=== PATIENT | female | born 1990 | race Two or more races ===

== ENCOUNTER 2017-01-05 18:13 | Emergency (ER) | payer SELFPAY ==
[~2017-01-05] VITALS: Ht 157.5 cm; Wt 65.8 kg
[2017-01-05 19:10] VITALS: BP 144/108
[2017-01-05 19:12] VITALS: BP 144/108
--- NOTE | 2017-01-05 19:14 | Emergency Room Report ---
History of Present Illness General Chief Complaint: Abdominal Pain Source: Patient Present Illness HPI The patient is a 26 yo F presenting for abd pain. She was called multiple times and ER was searched thoroughly. It appears she has left without being seen Allergies: Coded Allergies: No Known Allergies (Unverified , 01/05/17) Patient History Last Menstrual Period: 12/18/2016 Nursing Documentation-[facility] Past Medical History: No Stated History Physical Exam Vital Signs Date Time Temp Pulse Resp B/P (MAP) Pulse Ox O2 Delivery O2 Flow Rate FiO2 01/05/17 18:26 98.4 122 16 144/108 97 Room Air Medical Decision Making PA Attestation Dr. Cross is my supervising physician. Patient management was discussed with my supervising physician ER Course The patient is a 26 yo F presenting for abd pain. She was called multiple times and ER was searched thoroughly. It appears she has left without being seen Last Vital Signs Date Time Temp Pulse Resp B/P (MAP) Pulse Ox O2 Delivery O2 Flow Rate FiO2 01/05/17 19:10 98.4 16 144/108 97 Room Air 01/05/17 18:26 122 Disposition: LEFT W/OUT BEING SEEN Condition: Unknown Scripts No Active Prescriptions or Reported Meds SAADIA RIVERA Jan 05, 2017 19:14
== END 2017-01-05 19:12 | disposition left against medical advice (07) ==
LOC: EMR 18:33
DX: R10.9 Unspecified abdominal pain (principal); Z53.21 Procedure and treatment not carried out due to patient leaving prior to being seen by health care provider
CPT/HCPCS: 99282

== ENCOUNTER 2019-11-16 15:40 | Emergency (ER) | payer MEDICAID ==
[~2019-11-16] VITALS: Ht 165.1 cm; Wt 81.6 kg
--- NOTE | 2019-11-16 16:08 | NUR ---
ED Nurse Note: Pt BIBA for ETOH abuse after son left home. Pt is alert and orientedx3, drowsy, rambling, repeating words, slurred. IV line established.
[2019-11-16 16:11] VITALS: BP 127/78
[2019-11-16 16:18] LABS: BASOPHILS % (AUTO) 1.2 % (0.0-2.0); EOSINOPHILS % (AUTO) 0.9 % (0.0-3.0); HEMATOCRIT 43.8 % (37.0-47.0); HEMOGLOBIN 14.7 G/DL (12.0-16.0); LYMPHOCYTES % (AUTO) 29.9 % (20.0-45.0); MEAN CORPUSCULAR VOLUME 90 FL (80-99); MONOCYTES % (AUTO) 6.4 % (1.0-10.0); NEUTROPHILS % (AUTO) 61.6 % (45.0-75.0); PLATELET COUNT 433 K/UL (150-450); RED BLOOD COUNT 4.86 M/UL (4.20-5.40); RED CELL DISTRIBUTION WIDTH 13.3 % (11.6-14.8); WHITE BLOOD COUNT 6.8 K/UL (4.8-10.8)
[2019-11-16 16:30] LABS: ANION GAP 13 mmol/L (5-15); BLOOD UREA NITROGEN 9 mg/dL (7-18); CALCIUM 9.3 MG/DL (8.5-10.1); CARBON DIOXIDE 21 MMOL/L (21-32); CHLORIDE 107 MMOL/L (98-107); CREATININE 0.5 MG/DL (0.55-1.30); SODIUM 141 MMOL/L (136-145)
[2019-11-16 16:34] LABS: ALANINE AMINOTRANSFERASE 44 U/L (12-78); ALKALINE PHOSPHATASE 64 U/L (46-116); ASPARTATE AMINO TRANSFERASE 16 U/L (15-37); BILIRUBIN,TOTAL 0.3 MG/DL (0.2-1.0)
[2019-11-16 16:50] LABS: BILIRUBIN, URINE NEGATIVE (NEGATIVE); COLOR,URINE PALE YELLOW; GLUCOSE, URINE (UA) NEGATIVE (NEGATIVE); KETONES,URINE NEGATIVE (NEGATIVE); LEUKOCYTE ESTERASE ,URINE NEGATIVE (NEGATIVE); NITRITE,URINE NEGATIVE (NEGATIVE); PH,URINE 6 (4.5-8.0); PROTEIN,URINE NEGATIVE (NEGATIVE); UROBILINOGEN,URINE NORMAL MG/DL (0.0-1.0)
[2019-11-16 16:53] LABS: APPEARANCE,URINE CLEAR
--- NOTE | 2019-11-16 17:12 | NUR ---
when patient is ready to go home call patients mother slade [phone]
--- NOTE | 2019-11-16 17:22 | Emergency Room Report ---
History of Present Illness General Chief Complaint: Alcohol Intoxication Source: EMS Present Illness HPI 29-year-old female with no known significant past medical history brought in by paramedics due to alcohol intoxication. Patient was sitting at home and very anxious yesterday drinking a lot of alcohol based on report given by patient's mother to the paramedics. Patient stumbling her way into the ED, denies any drug use, tobacco smoke. Complains of nausea and vomiting. Reports that she has not taken any medication for her to poor historian. Patient is in no distress. Denies . 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 Patient History Past Medical History: see triage record Past Surgical History: unable to obtain Pertinent Family History: unable to obtain Social History: Reports: alcohol use Now: No Reviewed Nursing Documentation: PMH: Agreed; PSxH: Agreed Nursing Documentation-PMH Past Medical History: No History, Except For Review of Systems All Other Systems: negative except mentioned in HPI Physical Exam Vital Signs Date Time Temp Pulse Resp B/P (MAP) Pulse Ox O2 Delivery O2 Flow Rate FiO2 11/16/19 15:33 98.4 118 17 140/79 (99) 98 Room Air 11/16/19 16:11 99 Sp02 EP Interpretation: reviewed, normal General Appearance: alert, mild distress Head: normocephalic, atraumatic Eyes: bilateral eye normal inspection, bilateral eye PERRL ENT: hearing grossly normal, normal pharynx, no angioedema, normal voice Neck: full range of motion, supple/symm/no masses Respiratory: chest non-tender, lungs clear, no rhonchi Cardiovascular #1: regular rate, rhythm, no edema Gastrointestinal: non tender, soft Genitourinary: no CVA tenderness Musculoskeletal: back normal Neurologic: alert, motor strength/tone normal, oriented x3, sensory intact, responsive, speech normal Psychiatric: no suicidal/homicidal ideation, other - intoxicated Skin: no rash Lymphatic: no adenopathy Medical Decision Making PA Attestation All my diagnosis and treatment plans were reviewed ad discussed with my supervising physician Dr. Crow Diagnostic Impression: Primary Impression: Acute alcoholic intoxication ER Course 29-year-old female with no known significant past medical history brought in by paramedics due to alcohol intoxication. Patient was sitting at home and very anxious yesterday drinking a lot of alcohol based on report given by patient's mother to the paramedics. Patient stumbling her way into the ED, denies any drug use, tobacco smoke. Complains of nausea and vomiting. Reports that she has not taken any medication for her to poor historian. Patient is in no distress. Denies . Denies headache, dizziness, no signs of encephalopathy noted, denies any tremors Ddx considered but are not limited to: Alcohol intoxication with altered level of consciousness, alcohol intoxication causing pancreatitis, alcohol abuse, multi drug use and alcohol intoxication Vital signs: are WNL, pt. is afebrile H&PE are most consistent with: acute alcohol intoxication ORDERS: CBC, CMP, UDS, EtOH level, urine test, UA, ER intervention: NS bolus, Zofran, Pepcid DISCHARGE: At this time pt. is stable for d/c to home. Will provide printed patient care instructions, and any necessary prescriptions. Care plan and follow up instructions have been discussed with the patient prior to discharge. Patient able to speak full sentences, remember, anxious, called mom to come pick her up. Patient is walking without any problems. Stable at time of discharge Last Vital Signs Date Time Temp Pulse Resp B/P (MAP) Pulse Ox O2 Delivery O2 Flow Rate FiO2 11/16/19 16:11 98.4 98 19 127/78 99 Room Air 11/16/19 16:11 99 Disposition: HOME, SELF-CARE Condition: Stable Scripts No Active Prescriptions or Reported Meds Referrals: [facility],REFERRING (PCP) Patient Instructions: Alcohol Abuse and Nutrition Molly Munoz Nov 16, 2019 17:22
[2019-11-16 18:24] VITALS: BP 126/75
--- NOTE | 2019-11-16 20:01 | NUR ---
EMERGENCY CONTACT: [phone]: Valencia (mother)
[2019-11-16 20:06] VITALS: BP 120/69
--- NOTE | 2019-11-16 20:06 | NUR ---
ED Nurse Note: Pt cleared by ERPA for discharge. DC instructions was given and explained to pt and verbalized understanding of teachings. All medical deviecs such as ID band and IV line removed. Pt is AAO x4, ambulatory and left with all personal belongings. P/u by mother.
== END 2019-11-16 20:06 | disposition home or self-care (01) ==
LOC: EDBD 15:40 → EMR 16:07
DX: F10.129 Alcohol abuse with intoxication, unspecified (principal)
CPT/HCPCS: 36415; 80053; 80307; 81003; 81025; 83690; 85025; 96361; 96374; 96375; G0480; J2405; J7030; S0028; Z7502; 99284

== ENCOUNTER 2020-03-28 14:13 | Emergency (ER) | payer MEDICAID ==
[~2020-03-28] VITALS: Ht 154.9 cm; Wt 65.8 kg
--- NOTE | 2020-03-28 14:34 | NUR ---
ED Nurse Note:pt. came from home with lower abdominal cramping, no vaginal bleeding reported, no fever, pt. was examed by ER MD, she is 22 weeks
--- NOTE | 2020-03-28 14:37 | Emergency Room Report ---
History of Present Illness General Chief Complaint: Complications Source: Patient Present Illness HPI Patient is a 29-year-old female presents for increased abdominal cramping no vaginal bleeding. Reports having rash to her upper abdomen as well as increased abdominal discomfort. Denies any leakage of fluid or change in movement. at 22 weeks. Had not seen OB to this point. 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 COVID-19 Screening: Positive COVID-19 COVID-19 Testing Source: jan 2020 Patient History Past Medical History: see triage record Last Menstrual Period: 10/2019 Now: Yes : 2 Para: 1 Reviewed Nursing Documentation: PMH: Agreed; PSxH: Agreed Nursing Documentation-PMH Past Medical History: No History, Except For Review of Systems All Other Systems: negative except mentioned in HPI Physical Exam Vital Signs Date Time Temp Pulse Resp B/P (MAP) Pulse Ox O2 Delivery O2 Flow Rate FiO2 03/28/20 14:18 97.9 82 20 114/76 (89) 98 Room Air Sp02 EP Interpretation: reviewed, normal General Appearance: normal inspection, well appearing, no apparent distress, alert, GCS 15 Head: atraumatic ENT: normal ENT inspection, hearing grossly normal, normal voice Neck: normal inspection, full range of motion, supple, no bony tend Respiratory: normal inspection, lungs clear, normal breath sounds, no respiratory distress, no retraction, no wheezing Cardiovascular #1: regular rate, rhythm, no edema Gastrointestinal: normal inspection, normal bowel sounds, non tender, soft, no guarding, no hernia Genitourinary: no CVA tenderness Musculoskeletal: normal inspection, back normal, normal range of motion Neurologic: alert, motor strength/tone normal, medicare sales representative III-XII nml as tested, oriented x3, responsive, speech normal, normal inspection Psychiatric: normal inspection, judgement/insight normal, mood/affect normal Skin: other - Patchy rash to the right upper abdomen consistent with recent shingles Medical Decision Making Diagnostic Impression: Primary Impression: Complication of ER Course Patient presented for abdominal pain. Differential diagnosis include was not limited to premature labor, constipation, among others. Patient was noted to have advanced age of and cannot be managed at this facility. Patient does not currently in active labor. Bedside ultrasound showed adequate heartbeat with heart rate approximately 150s.Patient will be given IV fluids as well as Tylenol for pain. Formal ultrasound showed intrauterine with heart rate of 140s. Patient will be transferred to [facility] for labor and delivery for higher level of care. Patient was discussed with [facility] who agreed to accept the patient. Labs Test 03/28/20 14:25 03/28/20 14:45 Urine Color Pale yellow Urine Appearance Clear Urine pH 6.5 (4.5-8.0) Urine Specific [place] 1.020 (1.005-1.035) Urine Protein Negative (NEGATIVE) Urine Glucose (UA) Negative (NEGATIVE) Urine Ketones Negative (NEGATIVE) Urine Blood Negative (NEGATIVE) Urine Nitrite Negative (NEGATIVE) Urine Bilirubin Negative (NEGATIVE) Urine Urobilinogen Normal MG/DL (0.0-1.0) Urine Leukocyte Esterase 1+ (NEGATIVE) Urine RBC 0-2 /HPF (0 - 2) Urine WBC 0-2 /HPF (0 - 2) Urine Squamous Epithelial Cells Few /LPF (NONE/OCC) Urine Bacteria Few /HPF (NONE) White Blood Count 6.8 K/UL (4.8-10.8) Red Blood Count 3.82 M/UL (4.20-5.40) Hemoglobin 11.7 G/DL (12.0-16.0) Hematocrit 35.0 % (37.0-47.0) Mean Corpuscular Volume 92 FL (80-99) Mean Corpuscular Hemoglobin 30.8 PG (27.0-31.0) Mean Corpuscular Hemoglobin Concent 33.5 G/DL (32.0-36.0) Red Cell Distribution Width 13.4 % (11.6-14.8) Platelet Count 400 K/UL (150-450) Mean Platelet Volume 5.6 FL (6.5-10.1) Neutrophils (%) (Auto) 66.9 % (45.0-75.0) Lymphocytes (%) (Auto) 25.2 % (20.0-45.0) Monocytes (%) (Auto) 6.5 % (1.0-10.0) Eosinophils (%) (Auto) 1.1 % (0.0-3.0) Basophils (%) (Auto) 0.2 % (0.0-2.0) Sodium Level 136 MMOL/L (136-145) Potassium Level 4.0 MMOL/L (3.5-5.1) Chloride Level 105 MMOL/L (98-107) Carbon Dioxide Level 23 MMOL/L (21-32) Anion Gap 8 mmol/L (5-15) Blood Urea Nitrogen 14 mg/dL (7-18) Creatinine 0.5 MG/DL (0.55-1.30) Estimat Glomerular Filtration Rate > 60 mL/min (>60) Glucose Level 92 MG/DL (74-106) Calcium Level 9.0 MG/DL (8.5-10.1) Total Bilirubin 0.1 MG/DL (0.2-1.0) Aspartate Amino Transf (AST/SGOT) < 5 U/L (15-37) Alanine Aminotransferase (ALT/SGPT) 8 U/L (12-78) Alkaline Phosphatase 58 U/L (46-116) Total Protein 6.6 G/DL (6.4-8.2) Albumin 2.7 G/DL (3.4-5.0) Globulin 3.9 g/dL Albumin/Globulin Ratio 0.7 (1.0-2.7) Lipase 376 U/L (73-393) Human Chorionic Gonadotropin, Quant 7379 mIU/mL (1-6) Last Vital Signs Date Time Temp Pulse Resp B/P (MAP) Pulse Ox O2 Delivery O2 Flow Rate FiO2 03/28/20 14:18 97.9 82 20 114/76 (89) 98 Room Air Status: unchanged Disposition: SHORT-TERM HOSP Condition: Stable Scripts No Active Prescriptions or Reported Meds Shaun Crow MD Mar 28, 2020 14:37
--- NOTE | 2020-03-28 14:48 | NUR ---
ED Nurse Note:blood and urine sent to labs, abdominal U/S being done
[2020-03-28 14:56] LABS: APPEARANCE,URINE CLEAR; BILIRUBIN, URINE NEGATIVE (NEGATIVE); COLOR,URINE PALE YELLOW; GLUCOSE, URINE (UA) NEGATIVE (NEGATIVE); KETONES,URINE NEGATIVE (NEGATIVE); LEUKOCYTE ESTERASE ,URINE 1+ (NEGATIVE); NITRITE,URINE NEGATIVE (NEGATIVE); PH,URINE 6.5 (4.5-8.0); PROTEIN,URINE NEGATIVE (NEGATIVE); UROBILINOGEN,URINE NORMAL MG/DL (0.0-1.0)
[2020-03-28 15:06] LABS: ANION GAP 8 mmol/L (5-15); BLOOD UREA NITROGEN 14 mg/dL (7-18); CARBON DIOXIDE 23 MMOL/L (21-32); CHLORIDE 105 MMOL/L (98-107); CREATININE 0.5 MG/DL (0.55-1.30); SODIUM 136 MMOL/L (136-145)
[2020-03-28 15:10] LABS: ALANINE AMINOTRANSFERASE 8 U/L (12-78); ALBUMIN 2.7 G/DL (3.4-5.0); ALBUMIN/GLOBULIN RATIO 0.7 (1.0-2.7); ALKALINE PHOSPHATASE 58 U/L (46-116); ASPARTATE AMINO TRANSFERASE < 5 U/L (15-37); BASOPHILS % (AUTO) 0.2 % (0.0-2.0); BILIRUBIN,TOTAL 0.1 MG/DL (0.2-1.0); EOSINOPHILS % (AUTO) 1.1 % (0.0-3.0); HEMOGLOBIN 11.7 G/DL (12.0-16.0); LYMPHOCYTES % (AUTO) 25.2 % (20.0-45.0); MEAN CORPUSCULAR VOLUME 92 FL (80-99); MONOCYTES % (AUTO) 6.5 % (1.0-10.0); NEUTROPHILS % (AUTO) 66.9 % (45.0-75.0); PLATELET COUNT 400 K/UL (150-450); RED BLOOD COUNT 3.82 M/UL (4.20-5.40); RED CELL DISTRIBUTION WIDTH 13.4 % (11.6-14.8); WHITE BLOOD COUNT 6.8 K/UL (4.8-10.8)
[2020-03-28] MEDS ORDERED: Lidocaine HCl 2% Jelly 6ml Tube TOPIC ONE ×2 (15:43→15:45)
--- NOTE | 2020-03-28 15:49 | Diagnostic Imaging Report ---
US OB 2nd TRIMESTER EXAM: Obstetrical sonography (greater than 14 weeks) HISTORY: Pain COMPARISON: None TECHNIQUE: High resolution real time obstetrical sonography has been obtained. FINDINGS: presentation: Cephalic movement: Yes Cardiac activity/ Heart Rate: 140 bpm Four chamber heart seen: Yes Three vessel cord seen: Yes Anomalies: None Amniotic fluid: Normal Placental placement: Anterior age parameters: (EGA = Estimated Gestational Age) Biparietal diameter............. 5.43 cm, equivalent to 22 weeks 4 days EGA. Head circumference ........... 19.86 cm, equivalent to 22 weeks 0 days EGA. Abdominal circumference ... 16.48 cm, equivalent to 21 weeks 4 days EGA. Femur length .................... 3.56 cm, equivalent to 21 weeks 2 days EGA. Composite measurements 21 weeks 6 days EGA Estimated Weight: 428 grams (+/- 62 grams ) Additional notes: Cervix measures 4 cm. IMPRESSION: 1. Single live intrauterine in cephalic presentation. Cervix appears closed. Estimated gestational age by ultrasound is 21 weeks 6 days with estimated delivery of August 02, 2020
--- NOTE | 2020-03-28 16:00 | Diagnostic Imaging Report ---
US OB/ENDOVAG History: Abdominal pain Findings: Transabdominal and transvaginal OB ultrasound was performed. Single live intrauterine identified with heart rate of 140 bpm. Cervix is closed at 4 cm in length. Three-vessel cord identified. Anterior placenta with no evidence of previa. CORTNEY is 18.8 cm. heart rate is 140 bpm. BPD is 5.43 cm at 22 weeks 4 days. Head circumference is 19.86 cm at 22 weeks 0 days. Abdominal circumference is 16.43 cm at 21 weeks 4 days. Femur length is 3.56 cm at 21 weeks 2 days. Impression: Single live intrauterine with estimated gestational age by ultrasound 21 weeks 6 days with estimated date of delivery of August 02, 2020.
[2020-03-28 17:37] VITALS: BP 116/75
[2020-03-28 17:55] VITALS: BP 116/75
--- NOTE | 2020-03-28 17:55 | NUR ---
ED Nurse Note:called report to [facility], given to Lety RN, pt. is stable for transfer, she was picked up by ambulance
== END 2020-03-28 18:00 | disposition short-term general hospital (02) ==
LOC: EMR 14:34
DX: O26.892 Other specified pregnancy related conditions, second trimester (principal); Z3A.22 22 weeks gestation of pregnancy; R21 Rash and other nonspecific skin eruption; R10.9 Unspecified abdominal pain
CPT/HCPCS: 36415; 76805; 76817; 80053; 81003; 83690; 84702; 85025; J7040; Z7502; 99284